=== PATIENT | female | born 1940 | race Caucasian/White ===

== ENCOUNTER 2018-07-15 06:15 | Day surgery (SDC) ==
[~2018-07-15 06:15] MED LIST: BRIMONIDINE TARTRATE 0.2% OPTH SOL OP PRN; BSS WITH EPINEPHRINE OP ONE; DEX-MOXI-KETOR OPTH INJ 1/0.5/0.4 MG/ML IO ONE; LIDOCAINE 1% 20 ML MDV ID STA; LIDOCAINE 1%/PHENYLEPHRINE 1.5% BSS (SURGERY) INTRAOCULA ONE; ZOFRAN 4 MG/2 ML IVP ONE
[2018-07-15] MEDS: CYCLOGYL 2% OPTH OP PRN ×3 (06:20→06:30)
[2018-07-15] MEDS: BETADINE OPTH PREP OP PRN ×2 (06:20→07:00)
[2018-07-15] MEDS: TETRACAINE 0.5% UNIT-DOSE OP PRN ×2 (06:20→07:00)
[2018-07-15 06:32] VITALS: TEMP 97.8
[2018-07-15] MEDS ORDERED: LIDOCAINE 1% 20 ML MDV ID ONE (06:45)
[2018-07-15] MEDS ORDERED: VERSED ONE (07:10)
[2018-07-15] MEDS ORDERED: SUBLIMAZE ONE (07:10)
[2018-07-15] MEDS ORDERED: ZOFRAN 4 MG/2 ML ONE (07:10)
[2018-07-18 13:12] VITALS: BP 125/57
== END 2018-07-15 08:30 | disposition home or self-care (01) ==
LOC: SURG 06:15
PROVIDERS: ATTEND Ophthalmology
DX: H25.812 Combined forms of age-related cataract, left eye (principal)